=== PATIENT | male | born 1960 | race Caucasian/White ===

== ENCOUNTER 2017-03-31 11:20 | Day surgery (SDC) | payer BC ==
[~2017-03-31] VITALS: Ht 185.4 cm; Wt 104.5 kg
[2017-03-31] MEDS ORDERED: LISINOPRIL5 MG PO (11:47)
[2017-03-31] MEDS ORDERED: SIMVASTATIN20 MG PO (11:50)
[2017-03-31] MEDS ORDERED: LISINOPRIL40 MG PO (11:54)
[2017-03-31 12:09] VITALS: BP 123/66
[2017-03-31 15:17] VITALS: BP 132/74
[2017-03-31 15:55] VITALS: BP 137/79
== END 2017-03-31 16:18 | disposition home or self-care (01) ==
LOC: SDC 11:20
PROVIDERS: Urology
DX: N20.1 Calculus of ureter (principal); N40.0 Benign prostatic hyperplasia without lower urinary tract symptoms; Z87.442 Personal history of urinary calculi; Z88.1 Allergy status to other antibiotic agents
CPT/HCPCS: 82365 90; 93005; C1876; J0330; J0690; J1100; J1580; J2405; J3010